=== PATIENT | female | born 1940 | race Caucasian/White ===

== ENCOUNTER → 2021-11-04 | Outpatient (CLI) | payer BC ==
[~2021-11-04] MED LIST: ACET325 PO; ASPI81CH PO; DIAZ5 PO; DOCU100 PO; LOVA20 PO; Lopressor 25 mg25 MG PO; Lovastatin20 MG PO; MELA3 PO; MELO7.5 PO; METO25; METO50ER PO; NAPR500 PO; ONDA4ODT; PANT40 PO; POTCHL10ER PO; Percocet 10-321 EACH PO; Percocet 5-3251 EACH PO; Prednisone20 MG PO; RANI150 PO; Ranitidine HCl150 M1; Tambocor100 MG; VITAMIN D3400 UNI1 PO
== END | disposition home or self-care (01) ==
LOC: LAB SHORT 10:41
DX: N39.0 Urinary tract infection, site not specified (principal)
CPT/HCPCS: 87077; 87086; 87186

== ENCOUNTER → 2022-02-15 | Outpatient (CLI) | payer BC | END | disposition home or self-care (01) | LOC: LAB SHORT 13:28 → LAB 13:28 | DX: N39.0 Urinary tract infection, site not specified (principal) | CPT/HCPCS: 87077; 87086; 87186 ==

== ENCOUNTER 2024-06-08 09:08 | Observation (INO) | payer BC ==
[~2024-06-08] VITALS: Ht 170.2 cm; Wt 63.5 kg
[~2024-06-08 09:08] MED LIST changes: -METO25; +METO25 PO; -VITAMIN D3400 UNI1 PO
[2024-06-08] MEDS ORDERED: ELIQUIS5 M2 PO (09:23)
[2024-06-08] MEDS ORDERED: NS 1,000 ML IV SCH (09:40)
[2024-06-08] MEDS ORDERED: Diltiazem HCl 5 MG / ML 5ML Vial IV ONE (09:40)
[2024-06-08] MEDS ORDERED: dilTIAZem HCL 100 MG in NS 100 ML IV SCH (09:40)
[2024-06-08 09:52] LABS: BASOPHILS ABSOLUTE AUTO 0.07 K/mm3 (0.00-0.23); BASOPHILS PERCENT AUTO 1 % (0-2); EOSINOPHILS ABSOLUTE AUTO 0.08 K/mm3 (0.00-0.68); EOSINOPHILS PERCENT AUTO 1 % (0-6); Hematocrit 43.3 % (33.0-51.0); Hemoglobin 14.3 g/dL (11.5-16.0); IMMATURE GRAN ABSOLUTE AUTO 0.02 K/mm3 (0.00-0.10); IMMATURE GRAN PERCENT AUTO 0 % (0-1); LYMPHOCYTES ABSOLUTE AUTO 1.61 K/mm3 (0.84-5.20); LYMPHOCYTES PERCENT AUTO 22 % (21-46); MONOCYTES ABSOLUTE AUTO 0.56 K/mm3 (0.16-1.47); MONOCYTES PERCENT AUTO 8 % (4-13); Mean Corpuscular HGB 32.1 pg (26.0-34.0); Mean Corpuscular Volume 97 fL (80-100); Mean Platelet Volume 10.5 fL (9.1-12.4); NEUTROPHILS ABSOLUTE AUTO 5.08 K/mm3 (1.96-9.15); NEUTROPHILS PERCENT AUTO 69 % (41-73); Platelet Count 145 K/mm3 (150-400); RDW Coefficient Variation 13.2 % (11.7-14.2); RDW Standard Deviation 47.7 fL (35.1-46.3); Red Blood Cell Count 4.45 M/mm3 (3.80-5.20); White Blood Cell Count 7.42 K/mm3 (4.00-11.30)
[2024-06-08] MEDS ORDERED: DEXTROSE 5% IV SCH (09:55)
[2024-06-08] MEDS ORDERED: DILTIAZEM HCL IV SCH (09:55)
[2024-06-08 10:05] LABS: Albumin, Blood 3.6 g/dL (3.4-5.0); Bilirubin, Total 0.8 mg/dL (0.1-1.0); Bun/Creatinine Ratio 15.7 (12.0-20.0); Calcium, Blood 8.9 mg/dL (8.5-10.1); Creatinine, Blood 0.89 mg/dL (0.40-1.00); Globulin, Blood 3.7 g/dL (2.2-4.0); Potassium, Blood 4.2 mmol/L (3.5-5.5); Total Protein, Blood 7.3 g/dL (6.4-8.2)
[2024-06-08 10:27] LABS: Source, Urine Clean Catch
[2024-06-08 10:30] LABS: Appearance, Urine Hazy (Clear); Bilirubin, Urine Neg (Neg); Blood, Urine 2+ (Neg); Color, Urine Yellow (P-Yellow); Glucose Qualitative, Urine Neg (Neg); Ketones, Urine Neg (Neg); Leukocyte Esterase, Urine 3+ (Neg); Nitrite, Urine Neg (Neg); Protein, Urine Neg (Neg); Urobilinogen, Urine NORM (Normal)
[2024-06-08] MEDS ORDERED: Metoprolol Succinate 50 MG TABCR PO ONE (10:30)
[2024-06-08 10:46] LABS: Squamous Epithelial Cells Rare /hpf (Few); White Blood Cells, Urine 50-100 /hpf (0-5)
[2024-06-08 10:48] LABS: Bacteria Mod /hpf
[2024-06-08 11:29] LABS: Influenza A, PCR NEGATIVE (NEGATIVE); Influenza B, PCR NEGATIVE (NEGATIVE); Resp Syncytial Virus, PCR NEGATIVE (NEGATIVE); SARS-Cov-2 (COVID-19) PCR, MMC NEGATIVE (NEGATIVE)
[2024-06-08] MEDS ORDERED: Vitamin D1000 UNI1 PO (14:58)
[2024-06-08] MEDS ORDERED: Calcium Carbon500 MG PO (14:59)
[2024-06-08] MEDS ORDERED: Hair, Skin & N1 EACH PO (14:59)
[2024-06-08 16:00] VITALS: BP 128/85
[2024-06-08] MEDS ORDERED: Atorvastatin 10 MG Tab PO SCH (18:20)
--- NOTE | 2024-06-08 18:57 | NUR ---
NURSING PCU DAYSHIFT SUMMARY: Assumed care of pt at approx 1600. Arrived from ER via gurney accompanied by RN. Xfer w/SBA to unit bed. A/O, pleasant, cooperative. Denies any pain. Steady gait. Aflutter w/HR 80-130, no c/o CP/pressure. Resp status stable, RA, denies dyspnea. Occ pauses as recorded by [employer] representative < 4sec, PMD aware. At approx 1855, pt experienced short pause >3 sec followed by conversion to NSR. No s/s of acute distress at this time. EKG to be completed to verify rhythm change. Pt denies any needs, monitor until rpt is given to TESHA RN.
[2024-06-08 20:00] VITALS: BP 105/62
[2024-06-09] VITALS: BP 114/68
[2024-06-09] MEDS ORDERED: Heparin Sodium,Porcine 5,000 UNIT/0.5 ML SDV SC SCH
[2024-06-09 04:00] VITALS: BP 117/99; BP 132/69
[2024-06-09 04:14] LABS: BASOPHILS ABSOLUTE AUTO 0.05 K/mm3 (0.00-0.23); BASOPHILS PERCENT AUTO 1 % (0-2); EOSINOPHILS ABSOLUTE AUTO 0.15 K/mm3 (0.00-0.68); EOSINOPHILS PERCENT AUTO 3 % (0-6); Hemoglobin 12.7 g/dL (11.5-16.0); IMMATURE GRAN ABSOLUTE AUTO 0.01 K/mm3 (0.00-0.10); IMMATURE GRAN PERCENT AUTO 0 % (0-1); LYMPHOCYTES ABSOLUTE AUTO 1.87 K/mm3 (0.84-5.20); LYMPHOCYTES PERCENT AUTO 33 % (21-46); MONOCYTES ABSOLUTE AUTO 0.55 K/mm3 (0.16-1.47); MONOCYTES PERCENT AUTO 10 % (4-13); Mean Corpuscular HGB 31.8 pg (26.0-34.0); Mean Corpuscular HGB Conc 32.6 g/dL (31.5-36.5); Mean Corpuscular Volume 98 fL (80-100); NEUTROPHILS PERCENT AUTO 53 % (41-73); Platelet Count 130 K/mm3 (150-400); RDW Coefficient Variation 13.3 % (11.7-14.2); RDW Standard Deviation 48.1 fL (35.1-46.3); Red Blood Cell Count 3.99 M/mm3 (3.80-5.20); White Blood Cell Count 5.63 K/mm3 (4.00-11.30)
[2024-06-09 04:32] LABS: Bun/Creatinine Ratio 18.6 (12.0-20.0); Calcium, Blood 8.7 mg/dL (8.5-10.1); Creatinine, Blood 0.92 mg/dL (0.40-1.00); Potassium, Blood 4.4 mmol/L (3.5-5.5)
--- NOTE | 2024-06-09 06:12 | NUR ---
SHIFT SUMMARY PT A&O X4, PLEASANT AND COOPERATIVE WITH CARE. VSS; SBP 1 TEENS - 130, HRR SINUS RHYTHM MOSTLY IN 60'S. OCCASSIONALLY IN HIGH 50'S PER TELE. NO TELE EVENTS OR PAUSES THIS SHIFT. AFEBRILE, SPO2 WNL ON RA. DENIES CP/PRESSURE, PALPITATIONS, SOB, N/V, GENERAL PAIN. PT DOES REPORT "OCCASSIONAL MILD DIZZINESS". PT AMBULATING TO RESTROOM SBA TO RESTROOM, FOR SAFETY. PT RESTED WELL. CALL LIGHT IN REACH, ABLE TO MAKE NEEDS KNOWN.
[2024-06-09 07:51] VITALS: BP 109/80
[2024-06-09] MEDS ORDERED: Cholecalciferol 1000 Unit Tablet (=25MCG) PO SCH (09:00)
[2024-06-09] MEDS ORDERED: Multivitamins/Minerals TAB PO SCH (09:00)
[2024-06-09] MEDS ORDERED: Apixaban 5 MG Tab PO SCH (10:00)
[2024-06-09] MEDS ORDERED: Metoprolol Succinate 25 MG TABCR PO SCH (10:00)
[2024-06-09 13:00] VITALS: BP 129/74
--- NOTE | 2024-06-09 13:38 | NUR ---
DISCHARGE: THIS RN WENT OVER DC INSTRUCTIONS WITH PT. PT VERBALIZES UNDERSTANDING OF DC INFORMATIONS AND ALL QUESTIONS OR CONCERNS WERE ANSWERED. IV WAS REMOVED WITH CATHETER INTACT AND NO SWELLING TO AREA. PT WAS WHEELED TO EXIT VIA WHEEL CHAIR BY CORPORATE RECYCLING MANAGER WHERE RIDE WAS AWAITING HER. BELONGINGS WERE COLLECTED FROM ROOM BY PT AND STAFF AND TAKEN HOME WITH PT.
== END 2024-06-09 13:42 | disposition home or self-care (01) ==
LOC: ER 09:08 → PCU 09:09
PROVIDERS: Emergency Medicine; ADMIT Internal Medicine
DX: I48.91 Unspecified atrial fibrillation (principal); E78.00 Pure hypercholesterolemia, unspecified; K21.9 Gastro-esophageal reflux disease without esophagitis; M19.90 Unspecified osteoarthritis, unspecified site; Z79.01 Long term (current) use of anticoagulants; Z79.899 Other long term (current) drug therapy; Z91.013 Allergy to seafood; Z91.010 Allergy to peanuts
CPT/HCPCS: 0241U; 36415; 71046; 80048; 80053; 81001; 83880; 84484; 85025; 93005; 93010; 96361; 96365; 96366; 96372; 96376; 99285-25; A9270; G0378; J1644; J7030